=== PATIENT | male | born 1960 | race Hispanic/Latino ===

== ENCOUNTER 2019-01-03 10:33 | Inpatient (IN) | payer BC, OTHER ==
[2019-01-03] MEDS ORDERED: Fentanyl 100 MCG/2 ML VIAL ONE ×2 (10:46→16:12)
[2019-01-03 11:00] LABS: #Basophils 0.1 thou/uL (0.0-0.2); #Eosinphils 0.1 thou/uL (0.0-0.7); #Lymphocytes 1.2 thou/uL (1.20-3.40); #Monocytes 0.9 thou/uL (0.11-0.59); #Neutrophils 13.7 thou/uL (1.40-6.50); %Basophils 0.5 % (0.0-1.0); %Eosinophils 0.5 % (0.0-10.0); %Lymphocytes 7.3 % (21.0-51.0); %Monocytes 5.8 % (0.0-10.0); %Neutrophils 85.9 % (42.0-75.0); Hemoglobin 9.1 g/dL (14.0-18.0); Mean Corpuscular HGB CONC 32.8 g/dL (32.0-36.0); Mean Corpuscular Volume 91.3 fL (78.0-98.0); Mean Platelet Volume 7.6 fL (7.4-10.4); Platelet Count 262 thou/uL (130-400); RBC Distribution Width 11.9 % (11.5-14.5); Red Blood Cell (RBC) Count 3.03 mill/uL (4.70-6.10); White Blood Cell (WBC) Count 15.9 thou/uL (4.8-10.8)
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
[2019-01-03 11:07] LABS: INR-International Normal Ratio 1.2; PTT 27.8 SEC (22.9-36.1); Prothrombin Time 15.2 SEC (12.0-14.7)
[2019-01-03 11:18] LABS: ALT (SGPT) 31 U/L (8-55); AST (SGOT) 29 U/L (5-34); Albumin 2.7 g/dL (3.5-5.0); Alkaline Phosphatase 50 U/L (40-150); Anion Gap 10 mmol/L (10-20); BUN (Urea Nitrogen) 9 mg/dL (8.4-25.7); Bilirubin, Total 0.3 mg/dL (0.2-1.2); Calc. Creatinine Clearance 0 mL/min (70-130); Carbon Dioxide 23 mmol/L (22-29); Chloride 98 mmol/L (98-107); Estimated GFR-MDRD Greater than 90; Globulin 1.7 g/dL (2.4-3.5); Glucose 194 mg/dL (70-105); Potassium 3.6 mmol/L (3.5-5.1); Protein, Total 4.4 g/dL (6.0-8.3); Sodium 127 mmol/L (136-145)
[2019-01-03] MEDS ORDERED: Insulin Regular 300 UNITS/3 ML VIAL ONE (11:27)
[2019-01-03] MEDS ORDERED: Dextrose 5% in Water 1,000 ML IV PRN (12:03)
[2019-01-03] MEDS ORDERED: TETANUS AND DIPHTHERIA TOX/PF 0.5 ML DISP.SYRIN IM ONE ×2 (12:03→21:00)
[2019-01-03] MEDS ORDERED: Dextrose 50% Abboject 50 ML SYRINGE SLOW IVP PRN (12:03)
[2019-01-03] MEDS ORDERED: HumaLOG 300 UNITS/3 ML VIAL SC PRN (12:03)
[2019-01-03] MEDS ORDERED: Ondansetron PF 4 MG/2 ML Vial IVP PRN (12:03)
[2019-01-03] MEDS ORDERED: Promethazine HCl 25 MG/ML VIAL IM PRN (12:03)
[2019-01-03] MEDS ORDERED: Ventilator Sedation Protocol 1 EACH FS ONE (12:18)
[2019-01-03 12:34] LABS: Magnesium 1.4 mg/dL (1.6-2.6); Phosphorus 3.1 mg/dL (2.3-4.7)
[2019-01-03] MEDS ORDERED: fentaNYL Citrate/PF 2,000 MCG in Sodium Chloride 0.9% 60 ML IV SCH (13:08)
[2019-01-03] MEDS ORDERED: Morphine 2 MG/ML SYRINGE SLOW IVP PRN (13:08)
[2019-01-03] MEDS ORDERED: DISCONTINUE PREVIOUS NARCOTIC PAIN MEDICATIONS AND BENZODIAZEPINES FS SCH (13:08)
[2019-01-03] MEDS ORDERED: Fentanyl BOLUS 250 ML IVPB PRN (13:08)
[2019-01-03] MEDS ORDERED: Propofol BOLUS 1,000 MG/100 ML VIAL IV PRN (13:08)
[2019-01-03] MEDS ORDERED: Lorazepam 2 MG/ML VIAL SLOW IVP PRN (13:08)
[2019-01-03 13:09] LABS: Hemoglobin 10.5 g/dL (14.0-18.0); Mean Corpuscular HGB CONC 33.7 g/dL (32.0-36.0); Mean Corpuscular Hemoglobin 30.5 pg (27.0-31.0); Mean Corpuscular Volume 90.5 fL (78.0-98.0); Mean Platelet Volume 6.9 fL (7.4-10.4); Platelet Count 106 thou/uL (130-400); RBC Distribution Width 13.1 % (11.5-14.5); Red Blood Cell (RBC) Count 3.43 mill/uL (4.70-6.10)
[2019-01-03 13:13] LABS: INR-International Normal Ratio 1.2; PTT 39.7 SEC (22.9-36.1); Prothrombin Time 15.5 SEC (12.0-14.7)
[2019-01-03] MEDS ORDERED: Rocuronium Bromide 50 MG/5 ML VIAL ONE (13:26)
[2019-01-03] MEDS ORDERED: Calcium Chloride 1 GM/10 ML Abboject SYRINGE ONE ×2 (13:26→15:03)
[2019-01-03] MEDS ORDERED: Calcium Chloride 13.6 MEQ in Sodium Chloride 0.9% 100 ML IVPB SCH (14:00)
[2019-01-03 14:58] LABS: Hemoglobin 11.6 g/dL (14.0-18.0); Mean Corpuscular HGB CONC 33.1 g/dL (32.0-36.0); Mean Corpuscular Hemoglobin 29.8 pg (27.0-31.0); Mean Corpuscular Volume 90.1 fL (78.0-98.0); Mean Platelet Volume 7.2 fL (7.4-10.4); Platelet Count 108 thou/uL (130-400); White Blood Cell (WBC) Count 3.3 thou/uL (4.8-10.8)
[2019-01-03 14:59] LABS: INR-International Normal Ratio 1.1; Prothrombin Time 14.3 SEC (12.0-14.7)
[2019-01-03 15:00] LABS: PTT 34.4 SEC (22.9-36.1)
[2019-01-03] MEDS ORDERED: Rocuronium Bromide 10 MG/ML (10ML VIAL) ONE (15:03)
[2019-01-03] MEDS ORDERED: Succinylcholine Chloride 20 MG/ML 10 ml SYRINGE FS ONE (15:03)
[2019-01-03] MEDS ORDERED: PROPOFOL 200 MG/20 ML VIAL ONE (15:03)
--- NOTE | 2019-01-03 15:53 | RAD ---
EXAM: XR Abdomen 1 View/KUB DATE: 01/03/2019 12:00 AM INDICATION: Surgical count checked COMPARISON: Prior abdominal radiograph dated 01/03/2019 FINDING: There is a surgical drain within the lower abdomen and superior pelvis. There is a gastric catheter projecting in the region of gastric body. No additional suspicious radiopaque foreign body is noted. Visualized bowel gas pattern is nonspecific. No acute osseous abnormality is evident. IMPRESSION:No retained surgical instrumentation demonstrated other than a surgically placed drain wit hin the lower abdomen and a gastric catheter called within the region of the gastric body.
[2019-01-03 15:57] LABS: Actual Bicarbonate (HCO3a) 26.4 mEq/L (22-28); Base Excess (BEa) 0.8 mEq/L (-2.0 to +3.0); CO2 Tension 45.7 mmHg (35.0-45.0); Calcium, Ionized 1.16 mmol/L (1.12-1.30); Carboxyhemoglobin (COHb) 1.5 gm% (0.0-3.0); O2 Tension (PaO2) 98.1 mmHg (80.0-100.0); Potassium - ABG Lab 3.09 mmol/L (3.70-5.30); pH, Arterial 7.38 (7.35-7.45)
[2019-01-03] MEDS: Propofol 1,000 MG/100 ML VIAL IV PRN ×3 (16:00→22:10)
[2019-01-03 16:01] LABS: ALV-art Gradient 272.575 (0-20); Puncture Site LINE
[2019-01-03 16:09] LABS: #Lymphocytes 0.7 thou/uL (1.20-3.40); #Monocytes 0.4 thou/uL (0.11-0.59); #Neutrophils 2.7 thou/uL (1.40-6.50); %Eosinophils 0.2 % (0.0-10.0); %Lymphocytes 18.1 % (21.0-51.0); %Monocytes 9.4 % (0.0-10.0); %Neutrophils 72.3 % (42.0-75.0); Hemoglobin 12.4 g/dL (14.0-18.0); Mean Corpuscular HGB CONC 33.8 g/dL (32.0-36.0); Mean Corpuscular Hemoglobin 30.2 pg (27.0-31.0); Mean Corpuscular Volume 89.5 fL (78.0-98.0); Mean Platelet Volume 7.4 fL (7.4-10.4); Platelet Count 119 thou/uL (130-400); White Blood Cell (WBC) Count 3.8 thou/uL (4.8-10.8)
[2019-01-03 16:16] LABS: INR-International Normal Ratio 1.2; PTT 34.7 SEC (22.9-36.1)
[2019-01-03] MEDS: Sodium Chloride 0.9% 1,000 ML IV SCH ×2 (16:20→21:04)
[2019-01-03 16:24] LABS: Lactic Acid 2.4 mmol/L (0.5-2.2)
[2019-01-03] MEDS ORDERED: hydrALAZINE 20 MG/ML VIAL SLOW IVP PRN ×2 (16:28→16:38)
[2019-01-03] MEDS ORDERED: hydrALAZINE 20 MG/ML VIAL ONE (16:29)
[2019-01-03] MEDS ORDERED: Magnesium 2 GM/50 ML 2 GM in Premix Bag 1 BAG IVPB SCH (16:45)
[2019-01-03 16:50] LABS: ALT (SGPT) 55 U/L (8-55); AST (SGOT) 52 U/L (5-34); Albumin 3.4 g/dL (3.5-5.0); Alkaline Phosphatase 58 U/L (40-150); Anion Gap 12 mmol/L (10-20); BUN (Urea Nitrogen) 9 mg/dL (8.4-25.7); Calc. Creatinine Clearance 0 mL/min (70-130); Calcium 9.1 mg/dL (7.8-10.44); Carbon Dioxide 23 mmol/L (22-29); Chloride 102 mmol/L (98-107); Estimated GFR-MDRD Greater than 90; Globulin 2.3 g/dL (2.4-3.5); Glucose 65 mg/dL (70-105); Potassium 3.1 mmol/L (3.5-5.1); Protein, Total 5.7 g/dL (6.0-8.3); Sodium 134 mmol/L (136-145)
--- NOTE | 2019-01-03 17:13 | RAD ---
Exam: Chest one view HISTORY:Intubation Comparison: Same date, 1035 hours FINDINGS: Lungs: Bilateral perihilar patchy opacities are present. Left basilar density is also seen Cardiac silhouette:Enlarged cardiac and mediastinal silhouette Pulmonary vessels: Engorged Pleural Spaces: Mild pleural-based densities inferiorly Pneumothorax: No discrete pneumothorax. Interval placement of endotracheal tube with tip at thoracic inlet. Enteric catheter traverses to ran tral abdomen, at midline. Osseous abnormalities: No significant change IMPRESSION: Fluid overload. Interval intubation, as above
[2019-01-03] MEDS ORDERED: Potassium Chloride 40 MEQ in Premix Bag 1 BAG IVPB SCH (17:15)
[2019-01-03] MEDS: Piperacillin/Tazobactam 3.375 GM in Sodium Chloride 0.9% 100 ML IVPB SCH ×2 (17:22→22:19)
[2019-01-03 17:48] VITALS: BMI 33.3
[2019-01-03] MEDS ORDERED: Sodium Chloride 0.9% (PF) 10 ML VIAL FS PRN (18:14)
[2019-01-03] MEDS ORDERED: Pantoprazole 40 MG VIAL IVP SCH (18:15)
[2019-01-03 19:37] LABS: Bilirubin Negative (Negative); Blood, Urine Negative (Negative); Clarity Clear (Clear); Glucose, Urine (Dipstick) Normal (Negative); Leukocyte 250 Leu/uL (Negative); Nitrite Negative (Negative); Protein, Urine (Dipstick) Negative (Neg-Trace); RBC/HPF 0-3 HPF (0-3); Squamous Epithelial None Seen HPF (0-3); Urobilinogen Normal mg/dL (Less than 2)
[2019-01-03 19:44] LABS: Bacteria/HPF None Seen HPF (None Seen)
[2019-01-03] MEDS: Senokot S 8.6-50 MG TAB PO SCH (20:08)
[2019-01-03] MEDS ORDERED: Famotidine 20 MG TAB PO SCH (21:00)
[2019-01-04] MEDS ORDERED: Acetaminophen 1,000 MG in Premix Bag 1 BAG IVPB PRN (00:19)
[2019-01-04] MEDS: Sodium Chloride 0.9% 1,000 ML IV SCH ×3 (02:04→19:54)
[2019-01-04] MEDS: Propofol 1,000 MG/100 ML VIAL IV PRN (02:36)
[2019-01-04 03:24] LABS: INR-International Normal Ratio 1.3; PTT 34.3 SEC (22.9-36.1); Prothrombin Time 15.9 SEC (12.0-14.7)
[2019-01-04 03:37] LABS: Lactic Acid 1.4 mmol/L (0.5-2.2)
[2019-01-04 03:38] LABS: Band 31 % (5-11); Hemoglobin 11.9 g/dL (14.0-18.0); Hypochromia SLIGHT = 6-15 cells (100X) (0-5/hpf); Lymphocytes 14 % (21-51); MDiff Complete? YES; Mean Corpuscular HGB CONC 32.6 g/dL (32.0-36.0); Mean Corpuscular Hemoglobin 29.4 pg (27.0-31.0); Mean Corpuscular Volume 90.2 fL (78.0-98.0); Mean Platelet Volume 7.5 fL (7.4-10.4); Monocytes 5 % (0-10); Neutrophil 50 % (42-75); Platelet Count 138 thou/uL (130-400); Platelet Morphology Comment Appears Adequate; RBC Distribution Width 13.3 % (11.5-14.5); Red Blood Cell (RBC) Count 4.06 mill/uL (4.70-6.10); White Blood Cell (WBC) Count 6.6 thou/uL (4.8-10.8)
[2019-01-04 03:42] LABS: ALT (SGPT) 41 U/L (8-55); AST (SGOT) 38 U/L (5-34); Alkaline Phosphatase 50 U/L (40-150); Anion Gap 11 mmol/L (10-20); BUN (Urea Nitrogen) 10 mg/dL (8.4-25.7); Bilirubin, Total 1.3 mg/dL (0.2-1.2); Calc. Creatinine Clearance 135 mL/min (70-130); Calcium 8.2 mg/dL (7.8-10.44); Carbon Dioxide 26 mmol/L (22-29); Chloride 102 mmol/L (98-107); Estimated GFR-MDRD Greater than 90; Globulin 2.1 g/dL (2.4-3.5); Glucose 103 mg/dL (70-105); Potassium 3.7 mmol/L (3.5-5.1); Protein, Total 5.1 g/dL (6.0-8.3); Sodium 135 mmol/L (136-145)
[2019-01-04] MEDS: Piperacillin/Tazobactam 3.375 GM in Sodium Chloride 0.9% 100 ML IVPB SCH ×4 (04:10→22:02)
[2019-01-04] MEDS ORDERED: Hydrocortisone Sod Succ/PF 100 mg/2 ml Vial IVP SCH (07:15)
[2019-01-04] MEDS ORDERED: diphenhydrAMINE 50 MG/ML VIAL IM/IV SCH (07:15)
[2019-01-04 07:31] LABS: Actual Bicarbonate (HCO3a) 25.9 mEq/L (22-28); Base Excess (BEa) 0.8 mEq/L (-2.0 to +3.0); CO2 Tension 43.4 mmHg (35.0-45.0); Calcium, Ionized 1.03 mmol/L (1.12-1.30); Carboxyhemoglobin (COHb) 1.6 gm% (0.0-3.0); Hemoglobin (Hb) 12.8 g/dL (14.0-18.0); O2 Tension (PaO2) 77.1 mmHg (80.0-100.0); pH, Arterial 7.39 (7.35-7.45)
[2019-01-04 07:33] LABS: Puncture Site LINE
[2019-01-04] MEDS: Pantoprazole 40 MG VIAL IVP SCH (07:56)
[2019-01-04] MEDS: Polyethylene Glycol 3350 17 GM Packet PO SCH (07:56)
[2019-01-04] MEDS: Senokot S 8.6-50 MG TAB PO SCH ×2 (07:56→19:52)
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
[2019-01-04] MEDS ORDERED: diphenhydrAMINE 50 MG/ML VIAL IVP PRN (11:07)
[2019-01-04] MEDS ORDERED: diphenhydrAMINE 25 MG CAP PO PRN (11:07)
[2019-01-04] MEDS ORDERED: Naloxone HCl 0.4 mg/ml Vial IV PRN (11:07)
[2019-01-04] MEDS ORDERED: Communication Order-Pharmacy FS SCH (11:15)
[2019-01-04] MEDS: HYDROmorphone 10 mg/100 ml CADD IVPB PRN (11:38)
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
[2019-01-04] MEDS: Ketorolac Tromethamine 30 MG/ML VIAL IVP SCH ×3 (12:54→23:09)
[2019-01-04] MEDS: Acetaminophen 500 MG TAB PO SCH ×3 (12:56→23:09)
[2019-01-04 12:57] LABS: Phosphorus 4.1 mg/dL (2.3-4.7)
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
[2019-01-04] MEDS: hydrALAZINE 20 MG/ML VIAL SLOW IVP PRN (20:16)
[2019-01-04] MEDS ORDERED: ESZOPICLONE 1 MG PO PRN (21:07)
[2019-01-04] MEDS ORDERED: Labetalol 100 MG TAB PO SCH (21:30)
[2019-01-04] MEDS ORDERED: Valsartan 80 MG TAB PO ONE (21:31)
[2019-01-05] MEDS: Zolpidem Tartrate 5 MG TAB PO PRN (02:40)
[2019-01-05] MEDS ORDERED: Melatonin 3 MG TAB PO PRN (03:04)
[2019-01-05 03:58] LABS: Band 8 % (5-11); Hemoglobin 12.3 g/dL (14.0-18.0); Lymphocytes 5 % (21-51); MDiff Complete? YES; Mean Corpuscular HGB CONC 32.3 g/dL (32.0-36.0); Mean Corpuscular Hemoglobin 29.5 pg (27.0-31.0); Mean Corpuscular Volume 91.3 fL (78.0-98.0); Mean Platelet Volume 7.9 fL (7.4-10.4); Monocytes 3 % (0-10); Neutrophil 84 % (42-75); Platelet Count 142 thou/uL (130-400); Platelet Morphology Comment Appears Adequate; RBC Distribution Width 13.5 % (11.5-14.5); Red Blood Cell (RBC) Count 4.19 mill/uL (4.70-6.10); White Blood Cell (WBC) Count 9.9 thou/uL (4.8-10.8)
[2019-01-05 04:01] LABS: ALT (SGPT) 36 U/L (8-55); AST (SGOT) 31 U/L (5-34); Alkaline Phosphatase 66 U/L (40-150); Anion Gap 11 mmol/L (10-20); BUN (Urea Nitrogen) 7 mg/dL (8.4-25.7); Bilirubin, Total 1.1 mg/dL (0.2-1.2); Calc. Creatinine Clearance 168 mL/min (70-130); Calcium 8.6 mg/dL (7.8-10.44); Carbon Dioxide 26 mmol/L (22-29); Chloride 102 mmol/L (98-107); Estimated GFR-MDRD Greater than 90; Globulin 2.9 g/dL (2.4-3.5); Glucose 105 mg/dL (70-105); Magnesium 1.7 mg/dL (1.6-2.6); Phosphorus 2.4 mg/dL (2.3-4.7); Potassium 3.2 mmol/L (3.5-5.1); Protein, Total 5.9 g/dL (6.0-8.3); Sodium 136 mmol/L (136-145)
[2019-01-05] MEDS: Ketorolac Tromethamine 30 MG/ML VIAL IVP SCH ×4 (05:11→23:35)
[2019-01-05] MEDS: Piperacillin/Tazobactam 3.375 GM in Sodium Chloride 0.9% 100 ML IVPB SCH ×4 (05:11→22:52)
[2019-01-05] MEDS: Acetaminophen 500 MG TAB PO SCH ×4 (05:32→23:36)
[2019-01-05] MEDS: Sodium Chloride 0.9% 1,000 ML IV SCH ×3 (05:36→17:32)
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
[2019-01-05] MEDS ORDERED: Magnesium Sulfate 2 GM, Potassium Phosphate 30 MMOL in Sodium Chloride 0.9% 250 ML 250 ML IVPB SCH (08:30)
[2019-01-05] MEDS: Hydrochlorothiazide 25 MG TAB PO SCH (08:55)
[2019-01-05] MEDS: Senokot S 8.6-50 MG TAB PO SCH ×2 (08:56→21:02)
[2019-01-05] MEDS: Pantoprazole 40 MG VIAL IVP SCH (08:56)
[2019-01-05] MEDS ORDERED: Enoxaparin Sodium 30 MG/0.3 ML SYRINGE SC SCH (09:30)
[2019-01-05] MEDS: Polyethylene Glycol 3350 17 GM Packet PO SCH (09:39)
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
[2019-01-05] MEDS: Labetalol HCl 100 MG/20 ML VIAL SLOW IVP PRN (15:07)
--- NOTE | 2019-01-05 17:07 | EKG ---
Test Reason : Blood Pressure : / mmHG Vent. Rate : 059 BPM Atrial Rate : 059 BPM P-R Int : 144 ms QRS Dur : 082 ms QT Int : 424 ms P-R-T Axes : 051 027 036 degrees QTc Int : 419 ms Sinus bradycardia Possible Inferior infarct , age undetermined Abnormal ECG No previous ECGs available Confirmed by POLLY ALCAZAR ([id number]) on 01/05/2019 5:06:55 PM Referred By: NICOL Confirmed By:POLLY ALCAZAR
--- NOTE | 2019-01-05 19:23 | PDOC.GSPN ---
Surgery Progress Note: Subj - Subjective Narrative: Patient is doing well. He has ambulated with assistance. Pain is tolerable. No flatus but no nausea and NG is not putting out much. Incisional wound VAC is in place. Serosanguineous drainage from the AARTI. H&H are stable and other labs look good. He is awaiting a floor bed. Surgery Progress Note: Obj - Vital signs Vital signs: Vital Signs - Most Recent Temp Pulse Resp BP Pulse Ox 98.7 F 86 16 169/85 H 97 01/05/19 19:00 01/05/19 15:20 01/04/19 07:26 01/05/19 15:20 01/05/19 16:52 Surgery Progress Note: Results - Labs Result Diagrams: 01/05/19 03:19 01/05/19 03:19 Lab results: Laboratory Results - last 24 hr 01/05/19 01/05/19 01/05/19 09:20 12:42 17:25 POC Glucose 88 96 102
[2019-01-05] MEDS ORDERED: metFORMIN 500 MG TAB PO SCH (21:00)
[2019-01-05] MEDS: Enoxaparin Sodium 30 MG/0.3 ML SYRINGE SC SCH (21:02)
[2019-01-05] MEDS: traZODone HCl 50 MG TAB PO SCH (21:02)
[2019-01-05] MEDS ORDERED: PHOS-NAK 1 PKT PACK PO SCH (21:30)
[2019-01-06] MEDS: Zolpidem Tartrate 5 MG TAB PO PRN (03:12)
[2019-01-06] MEDS: Sodium Chloride 0.9% 1,000 ML IV SCH ×2 (03:40→08:09)
[2019-01-06] MEDS: Ketorolac Tromethamine 30 MG/ML VIAL IVP SCH (05:08)
[2019-01-06] MEDS: Piperacillin/Tazobactam 3.375 GM in Sodium Chloride 0.9% 100 ML IVPB SCH ×4 (05:08→23:04)
[2019-01-06] MEDS: Acetaminophen 500 MG TAB PO SCH (05:09)
[2019-01-06 06:21] LABS: Anion Gap 12 mmol/L (10-20); BUN (Urea Nitrogen) 9 mg/dL (8.4-25.7); Calc. Creatinine Clearance 168 mL/min (70-130); Calcium 8.2 mg/dL (7.8-10.44); Carbon Dioxide 23 mmol/L (22-29); Chloride 103 mmol/L (98-107); Estimated GFR-MDRD Greater than 90; Glucose 89 mg/dL (70-105); Magnesium 1.6 mg/dL (1.6-2.6); Phosphorus 2.7 mg/dL (2.3-4.7); Potassium 3.2 mmol/L (3.5-5.1); Sodium 135 mmol/L (136-145)
[2019-01-06] MEDS ORDERED: HumaLOG 300 UNITS/3 ML VIAL SC PRN (07:00)
[2019-01-06] MEDS ORDERED: Magnesium 2 GM/50 ML 2 GM in Premix Bag 1 BAG IVPB SCH (07:00)
[2019-01-06] MEDS ORDERED: Potassium Phosphate 30 MMOL in Sodium Chloride 0.9% 500 ML IVPB SCH (07:00)
[2019-01-06] MEDS ORDERED: Dextrose 5% in Water 1,000 ML IV PRN (07:00)
[2019-01-06] MEDS ORDERED: Dextrose 50% Abboject 50 ML SYRINGE SLOW IVP PRN (07:00)
[2019-01-06] MEDS ORDERED: Potassium Phosphate 30 MMOL in Sodium Chloride 0.9% 250 ML 250 ML IVPB SCH (08:00)
[2019-01-06] MEDS: Hydrochlorothiazide 25 MG TAB PO SCH (08:18)
[2019-01-06] MEDS: Senokot S 8.6-50 MG TAB PO SCH ×2 (08:19→20:36)
[2019-01-06] MEDS: Pantoprazole 40 MG VIAL IVP SCH ×2 (08:20→11:23)
[2019-01-06] MEDS: Enoxaparin Sodium 30 MG/0.3 ML SYRINGE SC SCH ×2 (08:21→20:34)
[2019-01-06] MEDS: HYDROmorphone 10 mg/100 ml CADD IVPB PRN (08:36)
[2019-01-06] MEDS: Polyethylene Glycol 3350 17 GM Packet PO SCH (10:26)
[2019-01-06] MEDS ORDERED: Ibuprofen 800 MG TAB PO SCH (11:00)
[2019-01-06] MEDS ORDERED: Acetaminophen 500 MG TAB PO SCH (12:00)
[2019-01-06] MEDS: HYDROcodone/Acetaminophen 7.5/325 mg Tablet PO SCH ×3 (12:04→23:06)
[2019-01-06] MEDS: HYDROcodone/Acetaminophen 7.5/325 mg Tablet PO PRN ×2 (13:13→18:04)
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
[2019-01-06] MEDS: Ibuprofen 800 MG TAB PO SCH ×2 (15:26→23:06)
[2019-01-06] MEDS: Acetaminophen 325 MG TAB PO SCH ×2 (17:14→23:07)
[2019-01-06] MEDS: traZODone HCl 50 MG TAB PO SCH (21:44)
[2019-01-07] MEDS: hydrALAZINE 20 MG/ML VIAL SLOW IVP PRN ×2 (01:12→05:28)
[2019-01-07] MEDS: Labetalol HCl 100 MG/20 ML VIAL SLOW IVP PRN ×2 (02:00→23:30)
[2019-01-07] MEDS: HYDROcodone/Acetaminophen 7.5/325 mg Tablet PO SCH ×4 (05:07→23:26)
[2019-01-07] MEDS: Acetaminophen 325 MG TAB PO SCH ×4 (05:07→23:26)
[2019-01-07] MEDS: Piperacillin/Tazobactam 3.375 GM in Sodium Chloride 0.9% 100 ML IVPB SCH ×4 (05:08→23:25)
[2019-01-07] MEDS: Ibuprofen 800 MG TAB PO SCH ×3 (06:15→23:26)
[2019-01-07 07:55] LABS: Anion Gap 13 mmol/L (10-20); BUN (Urea Nitrogen) 7 mg/dL (8.4-25.7); Calc. Creatinine Clearance 178 mL/min (70-130); Calcium 8.3 mg/dL (7.8-10.44); Carbon Dioxide 22 mmol/L (22-29); Chloride 102 mmol/L (98-107); Estimated GFR-MDRD Greater than 90; Glucose 107 mg/dL (70-105); Magnesium 1.8 mg/dL (1.6-2.6); Phosphorus 2.9 mg/dL (2.3-4.7); Sodium 134 mmol/L (136-145)
[2019-01-07 08:01] LABS: Potassium 2.8 mmol/L (3.5-5.1)
[2019-01-07] MEDS ORDERED: Magnesium 2 GM/50 ML 2 GM in Premix Bag 1 BAG IVPB SCH (08:15)
[2019-01-07] MEDS ORDERED: Potassium Phosphate 30 MMOL in Sodium Chloride 0.9% 500 ML IVPB SCH (08:15)
[2019-01-07 08:19] LABS: Hemoglobin 12.2 g/dL (14.0-18.0); Mean Corpuscular HGB CONC 33.9 g/dL (32.0-36.0); Mean Corpuscular Hemoglobin 30.4 pg (27.0-31.0); Mean Corpuscular Volume 89.9 fL (78.0-98.0); Mean Platelet Volume 7.9 fL (7.4-10.4); Platelet Count 231 thou/uL (130-400); Red Blood Cell (RBC) Count 4.01 mill/uL (4.70-6.10); White Blood Cell (WBC) Count 7.8 thou/uL (4.8-10.8)
[2019-01-07 08:58] LABS: Band 8 % (5-11); Lymphocytes 13 % (21-51); MDiff Complete? YES; Monocytes 9 % (0-10); Neutrophil 70 % (42-75); RBC Morphology Normal
[2019-01-07] MEDS: Hydrochlorothiazide 25 MG TAB PO SCH (09:07)
[2019-01-07] MEDS: Pantoprazole 40 MG VIAL IVP SCH (09:08)
[2019-01-07] MEDS: Enoxaparin Sodium 30 MG/0.3 ML SYRINGE SC SCH ×2 (09:08→21:35)
[2019-01-07] MEDS: Polyethylene Glycol 3350 17 GM Packet PO SCH (09:17)
[2019-01-07] MEDS: Senokot S 8.6-50 MG TAB PO SCH (09:17)
[2019-01-07] MEDS ORDERED: Potassium Phosphate 30 MMOL in Sodium Chloride 0.9% 250 ML 250 ML IVPB SCH (09:45)
[2019-01-07 13:20] LABS: Actual Bicarbonate (HCO3a) 21.6 mEq/L (22-28); Analyzer IN Cardio OR; Base Excess (BEa) -3.9 mEq/L (-2.0 to +3.0); CO2 Tension 41.3 mmHg (35.0-45.0); Calcium, Ionized 0.81 mmol/L (1.12-1.30); Carboxyhemoglobin (COHb) 0.1 gm% (0.0-3.0); Hemoglobin (Hb) 10.6 g/dL (14.0-18.0); O2 Tension (PaO2) 203.9 mmHg (80.0-100.0); Potassium - ABG Lab 3.56 mmol/L (3.70-5.30); pH, Arterial 7.34 (7.35-7.45)
[2019-01-07 13:20] LABS: Actual Bicarbonate (HCO3a) 19.2 mEq/L (22-28); Analyzer IN Cardio OR; Base Excess (BEa) -6.7 mEq/L (-2.0 to +3.0); Calcium, Ionized 0.69 mmol/L (1.12-1.30); Carboxyhemoglobin (COHb) 0.3 gm% (0.0-3.0); Hemoglobin (Hb) 10.6 g/dL (14.0-18.0); O2 Tension (PaO2) 220.4 mmHg (80.0-100.0); Potassium - ABG Lab 3.93 mmol/L (3.70-5.30)
[2019-01-07 13:21] LABS: Actual Bicarbonate (HCO3a) 20.2 mEq/L (22-28); Analyzer IN Cardio OR; Base Excess (BEa) -4.2 mEq/L (-2.0 to +3.0); CO2 Tension 34.6 mmHg (35.0-45.0); Calcium, Ionized 0.91 mmol/L (1.12-1.30); Carboxyhemoglobin (COHb) 0.2 gm% (0.0-3.0); O2 Tension (PaO2) 147.2 mmHg (80.0-100.0); Potassium - ABG Lab 3.02 mmol/L (3.70-5.30); pH, Arterial 7.38 (7.35-7.45)
[2019-01-07 13:22] LABS: Puncture Site ALINE
[2019-01-07 13:22] LABS: Puncture Site ALINE
[2019-01-07 13:22] LABS: Puncture Site ALINE
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
[2019-01-07] MEDS: traZODone HCl 50 MG TAB PO SCH (22:19)
[2019-01-08] MEDS: HYDROcodone/Acetaminophen 7.5/325 mg Tablet PO SCH (05:05)
[2019-01-08] MEDS: Acetaminophen 325 MG TAB PO SCH ×2 (05:06→11:44)
[2019-01-08] MEDS: Piperacillin/Tazobactam 3.375 GM in Sodium Chloride 0.9% 100 ML IVPB SCH ×2 (06:01→11:44)
[2019-01-08] MEDS: Ibuprofen 800 MG TAB PO SCH ×2 (06:02→14:59)
[2019-01-08 06:51] LABS: Anion Gap 15 mmol/L (10-20); BUN (Urea Nitrogen) 8 mg/dL (8.4-25.7); Calc. Creatinine Clearance 173 mL/min (70-130); Calcium 8.7 mg/dL (7.8-10.44); Carbon Dioxide 21 mmol/L (22-29); Chloride 101 mmol/L (98-107); Estimated GFR-MDRD Greater than 90; Glucose 98 mg/dL (70-105); Magnesium 1.8 mg/dL (1.6-2.6); Phosphorus 3.1 mg/dL (2.3-4.7); Sodium 134 mmol/L (136-145)
[2019-01-08 06:58] LABS: Potassium 2.9 mmol/L (3.5-5.1)
[2019-01-08] MEDS ORDERED: Potassium Phosphate 30 MMOL in Sodium Chloride 0.9% 500 ML IVPB SCH (07:45)
[2019-01-08] MEDS ORDERED: Magnesium 2 GM/50 ML 2 GM in Premix Bag 1 BAG IVPB SCH (07:45)
[2019-01-08] MEDS: Enoxaparin Sodium 30 MG/0.3 ML SYRINGE SC SCH (08:26)
[2019-01-08] MEDS ORDERED: Potassium Phosphate 30 MMOL in Sodium Chloride 0.9% 250 ML 250 ML IVPB SCH (08:30)
[2019-01-08] MEDS ORDERED: Hydrochlorothiazide 25 MG TAB PO SCH (09:00)
[2019-01-08] MEDS ORDERED: Saccharomyces boulardii 250 MG CAP PO SCH (09:00)
[2019-01-08] MEDS: hydrALAZINE 20 MG/ML VIAL SLOW IVP PRN (11:44)
[2019-01-08 14:49] VITALS: BP 121/69; TEMP 99.2
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
== END 2019-01-08 17:49 | disposition home or self-care (01) | DRG 329 ==
LOC: ERS 10:33 → SDC 11:13 → EEVIPCON 11:13 → CCU 11:35 → SURG A 01-05 19:48
PROVIDERS: ADMIT Surgery; ATTEND Surgery
PROC: 0DQ80ZZ Repair Small Intestine, Open Approach (ICD-10-PCS; principal; 2019-01-03)
PROC: 0DQV0ZZ Repair Mesentery, Open Approach (ICD-10-PCS; 2019-01-03)
PROC: 0DQE0ZZ Repair Large Intestine, Open Approach (ICD-10-PCS; 2019-01-03)
PROC: 0W3P0ZZ Control Bleeding in Gastrointestinal Tract, Open Approach (ICD-10-PCS; 2019-01-03)
PROC: 02HV33Z Insertion of Infusion Device into Superior Vena Cava, Percutaneous Approach (ICD-10-PCS; 2019-01-03)
PROC: 30233N1 Transfusion of Nonautologous Red Blood Cells into Peripheral Vein, Percutaneous Approach (ICD-10-PCS; 2019-01-03)
DX: S36.499A Other injury of unspecified part of small intestine, initial encounter (principal); R57.1 Hypovolemic shock; S36.593A Other injury of sigmoid colon, initial encounter; S36.39XA Other injury of stomach, initial encounter; D62 Acute posthemorrhagic anemia; I95.9 Hypotension, unspecified; I10 Essential (primary) hypertension; E11.9 Type 2 diabetes mellitus without complications; E83.39 Other disorders of phosphorus metabolism; E83.42 Hypomagnesemia; E87.6 Hypokalemia; W34.09XA Accidental discharge from other specified firearms, initial encounter; Y93.89 Activity, other specified; Y92.89 Other specified places as the place of occurrence of the external cause
CPT/HCPCS: 36415; 36416; 36430; 36556; 71045; 72170; 74018; 80048; 80053; 81001; 82533; 82805; 83605; 83735; 84100; 85007; 85025; 85027; 85384; 85610; 85730; 86850; 86900; 86901; 87040; 87086; 90714; 93005; 93010; 94002; 94003; C9113; G0390; J0131; J0360; J1200; J1650; J1720; J1815; J1885; J2060; J2543; J2704; J3010; J3475; J3480; J3490; J7050; P9012; P9016; P9035; P9048; P9059

== ENCOUNTER 2019-05-14 20:15 | Inpatient (IN) | payer BC ==
[2019-05-14] MEDS ORDERED: Dextrose 50% Abboject 50 ML SYRINGE SLOW IVP PRN (21:55)
[2019-05-14] MEDS ORDERED: Ondansetron PF 4 MG/2 ML Vial IVP PRN (21:55)
[2019-05-14] MEDS ORDERED: Lorazepam 2 MG/ML VIAL SLOW IVP PRN (21:55)
[2019-05-14] MEDS ORDERED: hydrALAZINE 20 MG/ML VIAL SLOW IVP PRN (21:55)
[2019-05-14] MEDS ORDERED: Insulin Regular 300 UNITS/3 ML VIAL SC PRN (21:55)
[2019-05-14] MEDS ORDERED: Dextrose 5% in Water 1,000 ML IV PRN (21:55)
[2019-05-14 21:56] VITALS: BMI 34.5
[2019-05-14] MEDS: Sodium Chloride 0.9% 1,000 ML IV SCH (22:32)
[2019-05-14] MEDS: Morphine 4 MG/ML VIAL SLOW IVP PRN (22:32)
[2019-05-15] MEDS: Morphine 4 MG/ML VIAL SLOW IVP PRN ×3 (00:48→15:50)
[2019-05-15 05:31] LABS: #Eosinphils 0.1 thou/uL (0.0-0.7); #Lymphocytes 1.3 thou/uL (1.20-3.40); #Monocytes 0.9 thou/uL (0.11-0.59); #Neutrophils 6.6 thou/uL (1.40-6.50); %Basophils 0.4 % (0.0-1.0); %Eosinophils 1.6 % (0.0-10.0); %Lymphocytes 14.4 % (21.0-51.0); %Monocytes 9.7 % (0.0-10.0); %Neutrophils 73.8 % (42.0-75.0); Hemoglobin 11.2 g/dL (14.0-18.0); Mean Corpuscular HGB CONC 33.9 g/dL (32.0-36.0); Mean Corpuscular Hemoglobin 30.3 pg (27.0-31.0); Mean Corpuscular Volume 89.4 fL (78.0-98.0); Mean Platelet Volume 7.6 fL (7.4-10.4); Platelet Count 272 thou/uL (130-400); RBC Distribution Width 12.3 % (11.5-14.5); White Blood Cell (WBC) Count 8.9 thou/uL (4.8-10.8)
[2019-05-15] MEDS: Piperacillin/Tazobactam 3.375 GM in Sodium Chloride 0.9% 100 ML IVPB SCH ×4 (05:35→17:42)
[2019-05-15] MEDS: Ketorolac Tromethamine 30 MG/ML VIAL IVP SCH ×3 (05:35→17:42)
[2019-05-15 05:49] LABS: ALT (SGPT) 28 U/L (8-55); AST (SGOT) 29 U/L (5-34); Albumin 3.5 g/dL (3.5-5.0); Alkaline Phosphatase 83 U/L (40-110); Anion Gap 10 mmol/L (10-20); BUN (Urea Nitrogen) 10 mg/dL (8.4-25.7); Bilirubin, Total 0.9 mg/dL (0.2-1.2); Calc. Creatinine Clearance 134 mL/min (70-130); Calcium 8.1 mg/dL (7.8-10.44); Carbon Dioxide 25 mmol/L (22-29); Chloride 104 mmol/L (98-107); Estimated GFR-MDRD Greater than 90; Globulin 2.9 g/dL (2.4-3.5); Glucose 114 mg/dL (70-105); Potassium 3.9 mmol/L (3.5-5.1); Protein, Total 6.4 g/dL (6.0-8.3); Sodium 135 mmol/L (136-145)
[2019-05-15] MEDS: Morphine 2 MG/ML SYRINGE SLOW IVP PRN (06:14)
[2019-05-15] MEDS: Sodium Chloride 0.9% 1,000 ML IV SCH ×2 (06:18→15:40)
[2019-05-15 08:00] LABS: Hemoglobin A1c 5.8 % (4.0-6.0)
[2019-05-15] MEDS: Famotidine/PF 20 mg/2ml Vial SLOW IVP SCH ×2 (08:33→20:31)
[2019-05-15] MEDS ORDERED: FLU VACC QS2019-20(6MOS UP)/PF 60 MCG/0.5 ML SYRINGE IM ONE (09:00)
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
[2019-05-16] MEDS: Ketorolac Tromethamine 30 MG/ML VIAL IVP SCH ×2 (00:06→05:20)
[2019-05-16] MEDS: Sodium Chloride 0.9% 1,000 ML IV SCH ×3 (00:06→17:32)
[2019-05-16] MEDS: Piperacillin/Tazobactam 3.375 GM in Sodium Chloride 0.9% 100 ML IVPB SCH ×5 (00:07→23:13)
[2019-05-16] MEDS: Morphine 4 MG/ML VIAL SLOW IVP PRN ×3 (07:12→22:05)
[2019-05-16] MEDS: Famotidine/PF 20 mg/2ml Vial SLOW IVP SCH ×2 (09:03→20:39)
[2019-05-16] MEDS ORDERED: Acetaminophen 1,000 MG in Premix Bag 1 BAG IVPB PRN (09:44)
--- NOTE | 2019-05-16 09:57 | PRG ---
DATE OF SERVICE: 05/16/2019 SUBJECTIVE: Mr. Canas feels slightly improved today. OBJECTIVE: He has been afebrile. Vital signs are stable. His abdomen is soft, mildly tender in the left lower quadrant with guarding without rebound. LABORATORY DATA: No new labs today. ASSESSMENT: Microperforation likely from localized sigmoid diverticulitis. PLAN: Continue IV antibiotics. Recheck labs in the morning. Keep on clear liquids for now. Job ID: [id number]
[2019-05-16] MEDS ORDERED: Acetaminophen 650 MG Suppository PR PRN (12:13)
[2019-05-17] MEDS: Piperacillin/Tazobactam 3.375 GM in Sodium Chloride 0.9% 100 ML IVPB SCH ×2 (05:13→12:19)
[2019-05-17] MEDS: Sodium Chloride 0.9% 1,000 ML IV SCH ×2 (05:14→09:43)
[2019-05-17 08:43] LABS: Anion Gap 20 mmol/L (10-20); BUN (Urea Nitrogen) 8 mg/dL (8.4-25.7); Calc. Creatinine Clearance 150 mL/min (70-130); Carbon Dioxide 13 mmol/L (22-29); Chloride 111 mmol/L (98-107); Estimated GFR-MDRD Greater than 90; Glucose 83 mg/dL (70-105); Potassium 5.2 mmol/L (3.5-5.1); Sodium 139 mmol/L (136-145)
--- NOTE | 2019-05-17 08:52 | DIS ---
DATE OF ADMISSION: 05/14/2019 DATE OF DISCHARGE: 05/17/2019 ADMISSION DIAGNOSIS: Sigmoid diverticulitis. DISCHARGE DIAGNOSIS: Sigmoid diverticulitis. PROCEDURES: None. CONDITION ON DISCHARGE: Improved. STAFF: Char/Arnold. HOSPITAL COURSE: The patient was admitted with abdominal pain. He had a couple of areas of microperforation around the sigmoid colon. His pain improved on admission. He was placed on broad-spectrum antibiotics. On the day of discharge, he is doing well. He is tolerating the liquid diet. He is advanced to full liquids. When he goes home, he is going to do a soup type diet for few days and then casseroles for few days before doing solid foods. Prescriptions for Levaquin once a day, Flagyl 3 times a day for 14 days were sent over to his pharmacy. He will follow up with Dr. Pardo in 2 weeks. Job ID: [id number]
[2019-05-17] MEDS: Famotidine/PF 20 mg/2ml Vial SLOW IVP SCH (09:42)
[2019-05-17] MEDS: Morphine 2 MG/ML SYRINGE SLOW IVP PRN (09:57)
[2019-05-17] MEDS ORDERED: HYDROcodone/Acetaminophen 7.5/325 mg Tablet PO PRN (10:28)
[2019-05-17 10:35] LABS: #Eosinphils 0.2 thou/uL (0.0-0.7); #Lymphocytes 1.3 thou/uL (1.20-3.40); #Monocytes 0.6 thou/uL (0.11-0.59); #Neutrophils 6.2 thou/uL (1.40-6.50); %Basophils 0.5 % (0.0-1.0); %Eosinophils 2.1 % (0.0-10.0); %Lymphocytes 15.9 % (21.0-51.0); %Monocytes 7.4 % (0.0-10.0); %Neutrophils 74.2 % (42.0-75.0); Mean Corpuscular HGB CONC 34.8 g/dL (32.0-36.0); Mean Corpuscular Hemoglobin 30.6 pg (27.0-31.0); Mean Platelet Volume 7.7 fL (7.4-10.4); Platelet Count 368 thou/uL (130-400); RBC Distribution Width 12.1 % (11.5-14.5); Red Blood Cell (RBC) Count 4.26 mill/uL (4.70-6.10); White Blood Cell (WBC) Count 8.4 thou/uL (4.8-10.8)
[2019-05-17 11:52] VITALS: BP 134/77; TEMP 98.1
== END 2019-05-17 15:10 | disposition home or self-care (01) | DRG 392 ==
LOC: SURG A 21:26
PROVIDERS: ADMIT Specialist; ATTEND Specialist
DX: K57.20 Diverticulitis of large intestine with perforation and abscess without bleeding (principal); I10 Essential (primary) hypertension; E11.9 Type 2 diabetes mellitus without complications; Z79.84 Long term (current) use of oral hypoglycemic drugs; Z28.21 Immunization not carried out because of patient refusal
CPT/HCPCS: 36415; 36416; 80048; 80053; 83036; 85025; J1885; J2270; J2543; J3490; S0028

== ENCOUNTER 2020-06-16 19:03 | Inpatient (IN) | payer BC ==
[2020-06-17 12:02] VITALS: BMI 33.2
[2020-06-17] MEDS ORDERED: FLU VACC QS2020-21(6MOS UP)/PF 60 MCG/0.5 ML SYRINGE IM ONE (12:30)
[2020-06-17] MEDS ORDERED: Acetaminophen 325 MG TAB PO PRN (13:00)
[2020-06-17] MEDS ORDERED: Ondansetron PF 4 MG/2 ML Vial IVP PRN (13:00)
[2020-06-17] MEDS ORDERED: Guaifenesin DM 100-10/5 ML UDCUP PO PRN (13:00)
[2020-06-17] MEDS ORDERED: Acetaminophen 650 MG Suppository PR PRN (13:00)
[2020-06-17] MEDS ORDERED: Loperamide HCl 2 MG CAP PO PRN (13:00)
[2020-06-17] MEDS ORDERED: Ondansetron ODT 4 MG TAB PO PRN (13:00)
[2020-06-17] MEDS ORDERED: Benzonatate 100 MG CAP PO PRN (13:05)
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
--- NOTE | 2020-06-17 13:39 | RAD ---
Chest AP view INDICATION: Shortness of breath COMPARISON: December 05, 2018 FINDINGS: Lungs: There are new airspace opacities within both lower lobes. Cardiac silhouette: There is mild cardiomegaly Pulmonary vasculature: There is mild pulmonary vascular congestion Pleural spaces: No pleural effusion or pneumothorax is demonstrated. Upper abdomen: No abnormality seen. Osseous structures: No acute osseous abnormality. Additional findings: None. IMPRESSION: Mild cardiomegaly with mild pulmonary vascular congestion. New infrahilar airspace opacities bilaterally are nonspecific but may reflect atelectasis, airspace e julia or pneumonia. Recommend correlation.
[2020-06-17] MEDS: Azithromycin 500 MG in Sodium Chloride 0.9% 250 ML 250 ML IVPB SCH (14:33)
[2020-06-17 15:09] LABS: #Lymphocytes 0.8 thou/uL (1.20-3.40); #Monocytes 0.4 thou/uL (0.11-0.59); #Neutrophils 4.6 thou/uL (1.40-6.50); %Basophils 0.3 % (0.0-1.0); %Eosinophils 0.4 % (0.0-10.0); %Lymphocytes 14.1 % (21.0-51.0); %Monocytes 6.8 % (0.0-10.0); %Neutrophils 78.5 % (42.0-75.0); Hemoglobin 12.4 g/dL (14.0-18.0); Mean Corpuscular HGB CONC 33.6 g/dL (32.0-36.0); Mean Corpuscular Hemoglobin 29.9 pg (27.0-31.0); Mean Corpuscular Volume 88.9 fL (78.0-98.0); Mean Platelet Volume 7.3 fL (7.4-10.4); Platelet Count 451 thou/uL (130-400); RBC Distribution Width 11.8 % (11.5-14.5); Red Blood Cell (RBC) Count 4.16 mill/uL (4.70-6.10); White Blood Cell (WBC) Count 5.9 thou/uL (4.8-10.8)
[2020-06-17] MEDS ORDERED: REMDESIVIR (EUA) 200 MG in Sodium Chloride 0.9% 250 ML 210 ML IV SCH (15:15)
[2020-06-17 15:20] LABS: Anion Gap 17 mmol/L (10-20); BUN (Urea Nitrogen) 19 mg/dL (8.4-25.7); Calc. Creatinine Clearance 123 mL/min (70-130); Calcium 8.1 mg/dL (7.8-10.44); Carbon Dioxide 19 mmol/L (22-29); Chloride 103 mmol/L (98-107); Glucose 171 mg/dL (70-105); Potassium 3.6 mmol/L (3.5-5.1); Sodium 135 mmol/L (136-145)
[2020-06-17 15:34] LABS: ALT (SGPT) 35 U/L (8-55); AST (SGOT) 24 U/L (5-34); Albumin 3.8 g/dL (3.5-5.0); Alkaline Phosphatase 82 U/L (40-110); Bilirubin, Direct 0.1 mg/dL (0.1-0.3); Bilirubin, Total 0.2 mg/dL (0.2-1.2); Protein, Total 7.1 g/dL (6.0-8.3)
[2020-06-17] MEDS: cefTRIAXone\\ROCEPHIN 1 GM in Sodium Chloride 0.9% 100 ML IVPB SCH (15:46)
[2020-06-17] MEDS: traMADol HCl 50 MG TAB PO PRN (17:09)
--- NOTE | 2020-06-17 18:17 | EKG ---
Test Reason : Blood Pressure : / mmHG Vent. Rate : 077 BPM Atrial Rate : 077 BPM P-R Int : 146 ms QRS Dur : 082 ms QT Int : 374 ms P-R-T Axes : 052 015 -13 degrees QTc Int : 423 ms Normal sinus rhythm Nonspecific T wave abnormality Abnormal ECG No previous ECGs available Confirmed by DR. Cathy ARVIZU MD ([id number]) on 06/17/2020 6:17:21 PM Referred By: SHANNON SEN Confirmed By:DR. Cathy ARVIZU MD
[2020-06-17] MEDS: Ibuprofen 800 MG TAB PO PRN (18:38)
[2020-06-17] MEDS: Acetaminophen 325 MG TAB PO SCH ×2 (18:39→21:41)
[2020-06-18] MEDS: Ibuprofen 800 MG TAB PO PRN (02:03)
[2020-06-18] MEDS: Acetaminophen 325 MG TAB PO SCH ×6 (02:03→22:32)
[2020-06-18 06:01] LABS: ALT (SGPT) 39 U/L (8-55); AST (SGOT) 26 U/L (5-34); Albumin 3.7 g/dL (3.5-5.0); Alkaline Phosphatase 73 U/L (40-110); Bilirubin, Direct 0.1 mg/dL (0.1-0.3); Bilirubin, Total 0.3 mg/dL (0.2-1.2); Protein, Total 7.3 g/dL (6.0-8.3)
[2020-06-18] MEDS ORDERED: Dextrose 5% in Water 1,000 ML IV PRN (07:21)
[2020-06-18] MEDS ORDERED: Dextrose 50% Abboject 50 ML SYRINGE SLOW IVP PRN (07:21)
[2020-06-18] MEDS: Dexamethasone 4 MG TAB PO SCH (08:24)
[2020-06-18] MEDS: Amlodipine 10 MG TAB PO SCH (08:26)
[2020-06-18] MEDS: Hydrochlorothiazide 25 MG TAB PO SCH (08:27)
[2020-06-18] MEDS: Aspirin Chewable 81 MG TAB PO SCH (08:27)
[2020-06-18] MEDS: Losartan 25 MG TAB PO SCH (08:27)
[2020-06-18 08:30] LABS: #Lymphocytes 1.5 thou/uL (1.20-3.40); #Monocytes 0.5 thou/uL (0.11-0.59); #Neutrophils 3.4 thou/uL (1.40-6.50); %Basophils 0.6 % (0.0-1.0); %Eosinophils 0.5 % (0.0-10.0); %Lymphocytes 26.8 % (21.0-51.0); %Monocytes 9.9 % (0.0-10.0); %Neutrophils 62.2 % (42.0-75.0); Hemoglobin 12.2 g/dL (14.0-18.0); Mean Corpuscular HGB CONC 34.3 g/dL (32.0-36.0); Mean Corpuscular Hemoglobin 30.9 pg (27.0-31.0); Mean Corpuscular Volume 89.9 fL (78.0-98.0); Mean Platelet Volume 7.4 fL (7.4-10.4); Platelet Count 462 thou/uL (130-400); RBC Distribution Width 11.7 % (11.5-14.5); Red Blood Cell (RBC) Count 3.95 mill/uL (4.70-6.10); White Blood Cell (WBC) Count 5.4 thou/uL (4.8-10.8)
[2020-06-18 08:47] LABS: Anion Gap 15 mmol/L (10-20); BUN (Urea Nitrogen) 22 mg/dL (8.4-25.7); Calc. Creatinine Clearance 132 mL/min (70-130); Calcium 8.2 mg/dL (7.8-10.44); Carbon Dioxide 23 mmol/L (22-29); Chloride 107 mmol/L (98-107); Glucose 95 mg/dL (70-105); Potassium 3.9 mmol/L (3.5-5.1); Sodium 141 mmol/L (136-145)
[2020-06-18] MEDS ORDERED: [UNRECOGNIZED DRUG - OTHER] PO SCH (09:00)
[2020-06-18] MEDS ORDERED: OLMESARTAN PO SCH (09:00)
[2020-06-18] MEDS ORDERED: Enoxaparin Sodium 40 MG/0.4 ML SYRINGE SC SCH (09:00)
[2020-06-18] MEDS ORDERED: AMLODIPIN PO SCH (09:00)
[2020-06-18] MEDS ORDERED: HCTHIAZID PO SCH (09:00)
--- NOTE | 2020-06-18 09:58 | PDOC.HOSPP ---
- Subjective Encounter Date: 06/18/20 Encounter Time: 09:56 Subjective: No overnight events. Patient reports his breathing feels stable. Is doing well on 2L NC. Continues with mild diarrhea. Endorses mild back pain from coughing. Chart and medications reviewed. - Objective Vital Signs & Weight: Vital Signs (12 hours) Temp Pulse Resp BP Pulse Ox 06/18/20 08:27 97.6 F 69 21 H 141/75 H 93 L 06/18/20 03:13 97.9 F 69 18 139/72 96 06/17/20 23:55 20 95 Weight Weight 212 lb 4.8 oz I&O: 06/17/20 06/18/20 06/19/20 06:59 06:59 06:59 Intake Total 1610 Balance 1610 Result Diagrams: 06/18/20 08:06 06/18/20 08:06 Hospitalist ROS - Review of Systems Constitutional: reports: fever, chills, sweats, weakness, malaise Eyes: denies: vision change Respiratory: reports: cough, shortness of breath Cardiovascular: denies: chest pain, palpitations, light headedness Gastrointestinal: reports: diarrhea. denies: nausea, vomiting, abdominal pain Genitourinary: denies: dysuria Musculoskeletal: reports: back pain Skin: denies: rash, lesions Neurological: denies: weakness, numbness - Medication Medications: Active Medications Generic Name Dose Route Start Last Admin Trade Name Freq PRN Reason Stop Dose Admin Acetaminophen 650 mg 06/17/20 18:30 06/18/20 06:12 Acetaminophen 325 Mg Tab PO 650 mg Q4H IVAN Administration Amlodipine Besylate 10 mg 06/18/20 09:00 06/18/20 08:26 Amlodipine 10 Mg Tab PO 10 mg DAILY IVAN Administration Aspirin 81 mg 06/18/20 09:00 06/18/20 08:27 Aspirin Chewable 81 Mg Tab PO 81 mg DAILY IVAN Administration Dexamethasone 6 mg 06/18/20 08:00 06/18/20 08:24 Dexamethasone 4 Mg Tab PO 6 mg QAM-WM IVAN Administration Enoxaparin Sodium 40 mg 06/18/20 09:00 06/18/20 08:27 Enoxaparin Sodium 40 Mg/0.4 Ml Syringe SC 40 mg 0900 IVAN Administration Hydrochlorothiazide 25 mg 06/18/20 09:00 06/18/20 08:27 Hydrochlorothiazide 25 Mg Tab PO 25 mg DAILY IVAN Administration Ceftriaxone Sodium 1 gm/ 100 mls @ 200 mls/hr 06/17/20 15:00 06/17/20 15:46 Sodium Chloride IVPB 100 mls Q24HR IVAN Administration Azithromycin 500 mg/ Sodium 250 mls @ 250 mls/hr 06/17/20 14:00 06/17/20 14:33 Chloride IVPB 250 mls Q24HR IVAN Administration Ibuprofen 800 mg 06/17/20 18:13 06/18/20 02:03 Ibuprofen 800 Mg Tab PO 800 mg Q6H PRN Administration Pain Losartan Potassium 100 mg 06/18/20 09:00 06/18/20 08:27 Losartan 25 Mg Tab PO 100 mg DAILY IVAN Administration Tramadol HCl 50 mg 06/17/20 16:34 06/17/20 17:09 Tramadol Hcl 50 Mg Tab PO 50 mg Q6H PRN Administration Moderate to Severe Pain (6-10) - Exam General Appearance: NAD, awake alert Eye: PERRL, anicteric sclera ENT: normocephalic atraumatic, no oropharyngeal lesions, moist mucosa Neck: supple, symmetric, no JVD, no thyromegaly, no lymphadenopathy, no carotid bruit Heart: RRR, no murmur, no gallops, no rubs, normal peripheral pulses Respiratory: CTAB, no wheezes, no rales, no ronchi, normal chest expansion, no tachypnea, normal percussion Gastrointestinal: soft, non-tender, non-distended, normal bowel sounds, no palpable masses, no hepatomegaly, no splenomegaly, no bruit Extremities: no cyanosis, no clubbing, no edema Skin: normal turgor, no lesions, no rashes Neurological: normal sensation to touch, no weakness, no focal deficits Musculoskeletal: normal tone, normal strength, no muscle wasting Psychiatric: normal affect, normal behavior, A&O x 3 Hosp A/P - Plan 52-year-old male past medical history of hypertension, hyperlipidemia, type 2 diabetes mellitus, diverticulitis transfer [facility] for COVID-19 pneumonia with hypoxia, now stable on 2 L nasal cannula. COVID-19 pneumonia Patient Covid positive and symptoms began approximately 4 days ago with fevers, chills, myalgias. Patient has had worsening fevers and shortness of breath and when he presented to outside ER had desaturated to the high 80s, requiring 2 L nasal cannula. Continues on 2L NC. Will continue dexamethasone, remdesivir. Plan Continue dexamethasone, remdesivir Continue ceftriaxone, azithromycin Inflammatory markers mildly elevated Tylenol, Robitussin, Tessalon pearls PRN Acute hypoxic respiratory failure Patient with acute hypoxic respiratory failure secondary to COVID-19 pneumonia. Patient has new oxygen requirement now requiring 2 L of oxygen nasal cannula to maintain O2 saturations. We will closely monitor respiratory status and treat as above. Plan Supplemental oxygen Treatment as above Closely monitor respiratory status Elevation in troponin Troponins very slightly elevated at outside hospital to 0.09, 0.01, 0.02. Patient without chest pain. Likely elevated inflammatory markers in setting of COVID-19 pneumonia. Patient has no cardiac history. EKG showed nonspecific T wave inversions but no ST segment changes. We will continue to monitor patient on telemetry and trend troponins. Patient did receive aspirin at outside facility. Plan Trend troponin Repeat EKG Telemetry monitoring Back pain Pt reports chronic history of mild back pain. Reports pulled muscle after coughing spell. Will continue tylenol, ibuprofen, heat pad as needed. Plan -Tylenol, Iburprofen -Heating pad PRN Hypertension History of hypertension on home olmesartan. Hyperlipidemia We will continue home statin Type 2 diabetes mellitus On Metformin. Hold oral agents and place on insulin sliding scale. DVT prophylaxisLovenox Full code
--- NOTE | 2020-06-18 12:50 | PDOC.BPN ---
- Brief Progress Note Encounter Date: 06/18/20 Encounter Time: 12:49 Chart reviewed and care discussed with EZ Nguyen - 60 y/o male admitted with acute resp failure secondary to COVID pneumonia. Oxygen requirement stable. Pt on steroids, remdesivir, antibiotics. Blood sugars controlled. I agree with plan of care as outlined in progress note by EZ Nguyen today.
[2020-06-18] MEDS: Azithromycin 500 MG in Sodium Chloride 0.9% 250 ML 250 ML IVPB SCH (14:05)
[2020-06-18] MEDS: cefTRIAXone\\ROCEPHIN 1 GM in Sodium Chloride 0.9% 100 ML IVPB SCH (14:56)
[2020-06-18] MEDS: REMDESIVIR (EUA) 100 MG in Sodium Chloride 0.9% 250 ML 230 ML IV SCH (16:17)
[2020-06-18] MEDS: HumaLOG 300 UNITS/3 ML VIAL SC PRN (16:18)
[2020-06-18] MEDS: traMADol HCl 50 MG TAB PO PRN (17:46)
[2020-06-19] MEDS: Acetaminophen 325 MG TAB PO SCH ×6 (02:27→22:41)
[2020-06-19 05:21] LABS: #Basophils 0.1 thou/uL (0.0-0.2); #Lymphocytes 1.3 thou/uL (1.20-3.40); #Monocytes 0.5 thou/uL (0.11-0.59); #Neutrophils 5.3 thou/uL (1.40-6.50); %Eosinophils 0.2 % (0.0-10.0); %Lymphocytes 17.8 % (21.0-51.0); %Monocytes 7.4 % (0.0-10.0); %Neutrophils 73.6 % (42.0-75.0); Mean Corpuscular HGB CONC 33.1 g/dL (32.0-36.0); Mean Corpuscular Hemoglobin 29.5 pg (27.0-31.0); Mean Corpuscular Volume 89.1 fL (78.0-98.0); Mean Platelet Volume 7.4 fL (7.4-10.4); Platelet Count 510 thou/uL (130-400); RBC Distribution Width 11.7 % (11.5-14.5); Red Blood Cell (RBC) Count 4.08 mill/uL (4.70-6.10); White Blood Cell (WBC) Count 7.2 thou/uL (4.8-10.8)
[2020-06-19 05:41] LABS: ALT (SGPT) 37 U/L (8-55); AST (SGOT) 21 U/L (5-34); Albumin 3.7 g/dL (3.5-5.0); Alkaline Phosphatase 71 U/L (40-110); Anion Gap 15 mmol/L (10-20); BUN (Urea Nitrogen) 20 mg/dL (8.4-25.7); Bilirubin, Direct 0.1 mg/dL (0.1-0.3); Bilirubin, Total 0.3 mg/dL (0.2-1.2); Calc. Creatinine Clearance 148 mL/min (70-130); Carbon Dioxide 22 mmol/L (22-29); Chloride 104 mmol/L (98-107); Glucose 121 mg/dL (70-105); Potassium 3.9 mmol/L (3.5-5.1); Protein, Total 7.1 g/dL (6.0-8.3); Sodium 137 mmol/L (136-145)
[2020-06-19] MEDS: Dexamethasone 4 MG TAB PO SCH (09:20)
[2020-06-19] MEDS: Amlodipine 10 MG TAB PO SCH (09:21)
[2020-06-19] MEDS: Aspirin Chewable 81 MG TAB PO SCH (09:22)
[2020-06-19] MEDS: Ascorbic Acid 500 mg Chewable Tablet PO SCH (09:22)
[2020-06-19] MEDS: Enoxaparin Sodium 40 MG/0.4 ML SYRINGE SC SCH ×2 (09:22→20:51)
[2020-06-19] MEDS: Hydrochlorothiazide 25 MG TAB PO SCH (09:23)
[2020-06-19] MEDS: Zinc Sulfate 220 MG CAP PO SCH (09:23)
[2020-06-19] MEDS: Losartan 25 MG TAB PO SCH (09:23)
--- NOTE | 2020-06-19 14:18 | PDOC.HOSPP ---
- Subjective Encounter Date: 06/19/20 Encounter Time: 07:30 Subjective: Patient seen for follow-up regarding acute hypoxic respiratory failure. He reports feeling better. - Objective Vital Signs & Weight: Vital Signs (12 hours) Temp Pulse Resp BP Pulse Ox 06/19/20 09:22 96 06/19/20 02:35 98.1 F 67 20 144/64 H 96 Weight Admit Weight 212 lb 4.8 oz Weight 212 lb 4.8 oz I&O: 06/18/20 06/19/20 06/20/20 06:59 06:59 06:59 Intake Total 1610 300 Balance 1610 300 Result Diagrams: 06/19/20 04:40 06/19/20 04:41 Additional Labs: Accuchecks 06/19/20 06/18/20 06/18/20 10:33 21:19 16:08 POC Glucose 144 H 160 H 168 H I reviewed patient's labs and MAR EKG Reviewed by me: Yes (Normal sinus rhythm on telemetry) Hospitalist ROS - Review of Systems Respiratory: reports: cough, dry. denies: shortness of breath, hemoptysis, SOB with excertion, pleuritic pain, sputum, wheezing Cardiovascular: denies: chest pain, palpitations, orthopnea, paroxysmal noc. dyspnea, edema, light headedness - Medication Medications: Active Medications Generic Name Dose Route Start Last Admin Trade Name Freq PRN Reason Stop Dose Admin Acetaminophen 650 mg 06/17/20 18:30 06/19/20 11:02 Acetaminophen 325 Mg Tab PO 650 mg Q4H IVAN Administration Amlodipine Besylate 10 mg 06/18/20 09:00 06/19/20 09:21 Amlodipine 10 Mg Tab PO 10 mg DAILY IVAN Administration Ascorbic Acid 1,000 mg 06/19/20 09:00 06/19/20 09:22 Ascorbic Acid 500 Mg Chewable Tablet PO 1,000 mg DAILY IVAN Administration Aspirin 81 mg 06/18/20 09:00 06/19/20 09:22 Aspirin Chewable 81 Mg Tab PO 81 mg DAILY IVAN Administration Dexamethasone 6 mg 06/18/20 08:00 06/19/20 09:20 Dexamethasone 4 Mg Tab PO 6 mg QAM-WM IVAN Administration Enoxaparin Sodium 40 mg 06/19/20 09:00 06/19/20 09:22 Enoxaparin Sodium 40 Mg/0.4 Ml Syringe SC 40 mg 0900,2100 IVAN Administration Hydrochlorothiazide 25 mg 06/18/20 09:00 06/19/20 09:23 Hydrochlorothiazide 25 Mg Tab PO 25 mg DAILY IVAN Administration Ceftriaxone Sodium 1 gm/ 100 mls @ 200 mls/hr 06/17/20 15:00 06/18/20 14:56 Sodium Chloride IVPB 100 mls Q24HR IVAN Administration Azithromycin 500 mg/ Sodium 250 mls @ 250 mls/hr 06/17/20 14:00 06/18/20 14:05 Chloride IVPB 250 mls Q24HR IVAN Administration Remdesivir 100 mg/ Sodium 250 mls @ 250 mls/hr 06/18/20 16:00 06/18/20 16:17 Chloride IV 06/21/20 16:59 250 mls 1600 IVAN Administration Insulin Human Lispro 0 units 06/18/20 07:21 06/18/20 16:18 Humalog 300 Units/3 Ml Vial SC 2 units .MILD SLIDING SCALE PRN Administration Mild Correctional Scale Losartan Potassium 100 mg 06/18/20 09:00 06/19/20 09:23 Losartan 25 Mg Tab PO 100 mg DAILY IVAN Administration Tramadol HCl 50 mg 06/17/20 16:34 06/18/20 17:46 Tramadol Hcl 50 Mg Tab PO 50 mg Q6H PRN Administration Moderate to Severe Pain (6-10) Zinc Sulfate 220 mg 06/19/20 09:00 06/19/20 09:23 Zinc Sulfate 220 Mg Cap PO 220 mg DAILY IVAN Administration - Exam General Appearance: awake alert Eye: anicteric sclera ENT: moist mucosa Neck: supple Heart: RRR Respiratory: CTAB Gastrointestinal: soft, non-tender Skin: no rashes Psychiatric: normal affect, normal behavior Hosp A/P - Plan -Assessment/plan Acute hypoxic respiratory failure Secondary to acute hypoxic respiratory failure. Patient continues to be on 2 L/min of oxygen. COVID-19 pneumonia Continue dexamethasone, remdesivir Continue ceftriaxone, azithromycin Start vitamin C and zinc. -Continue DVT prophylaxis. Elevation in troponin Secondary to non-ST elevation myocardial infarction type II from Covid infection. Back pain Continue tylenol, ibuprofen, heat pad as needed. Hypertension Controlled and stable. Hyperlipidemia Continue statin. Type 2 diabetes mellitus Continue Accu-Cheks and insulin sliding scale.
[2020-06-19] MEDS: cefTRIAXone\\ROCEPHIN 1 GM in Sodium Chloride 0.9% 100 ML IVPB SCH (14:19)
[2020-06-19] MEDS: Azithromycin 500 MG in Sodium Chloride 0.9% 250 ML 250 ML IVPB SCH (15:01)
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
[2020-06-19] MEDS: HumaLOG 300 UNITS/3 ML VIAL SC PRN (16:51)
[2020-06-19] MEDS: REMDESIVIR (EUA) 100 MG in Sodium Chloride 0.9% 250 ML 230 ML IV SCH (18:37)
[2020-06-19] MEDS ORDERED: Melatonin 3 MG TAB PO PRN (22:34)
[2020-06-20] MEDS: Acetaminophen 325 MG TAB PO SCH ×6 (02:30→22:12)
[2020-06-20 05:45] LABS: #Monocytes 0.7 thou/uL (0.11-0.59); %Basophils 0.5 % (0.0-1.0); %Eosinophils 0.2 % (0.0-10.0); %Monocytes 7.6 % (0.0-10.0); %Neutrophils 68.6 % (42.0-75.0); Hemoglobin 12.5 g/dL (14.0-18.0); Mean Corpuscular HGB CONC 34.6 g/dL (32.0-36.0); Mean Corpuscular Hemoglobin 30.7 pg (27.0-31.0); Mean Corpuscular Volume 88.9 fL (78.0-98.0); Mean Platelet Volume 7.3 fL (7.4-10.4); Platelet Count 566 thou/uL (130-400); RBC Distribution Width 11.5 % (11.5-14.5); Red Blood Cell (RBC) Count 4.09 mill/uL (4.70-6.10); White Blood Cell (WBC) Count 8.8 thou/uL (4.8-10.8)
[2020-06-20 06:12] LABS: ALT (SGPT) 55 U/L (8-55); AST (SGOT) 26 U/L (5-34); Albumin 3.7 g/dL (3.5-5.0); Alkaline Phosphatase 70 U/L (40-110); Anion Gap 15 mmol/L (10-20); BUN (Urea Nitrogen) 18 mg/dL (8.4-25.7); Bilirubin, Direct 0.1 mg/dL (0.1-0.3); Bilirubin, Total 0.3 mg/dL (0.2-1.2); Calc. Creatinine Clearance 146 mL/min (70-130); Calcium 8.2 mg/dL (7.8-10.44); Carbon Dioxide 19 mmol/L (22-29); Chloride 107 mmol/L (98-107); Glucose 111 mg/dL (70-105); Potassium 4.2 mmol/L (3.5-5.1); Protein, Total 7.2 g/dL (6.0-8.3); Sodium 137 mmol/L (136-145)
[2020-06-20] MEDS: Dexamethasone 4 MG TAB PO SCH (08:13)
[2020-06-20] MEDS: Ascorbic Acid 500 mg Chewable Tablet PO SCH (08:14)
[2020-06-20] MEDS: Amlodipine 10 MG TAB PO SCH (08:14)
[2020-06-20] MEDS: Hydrochlorothiazide 25 MG TAB PO SCH (08:15)
[2020-06-20] MEDS: Enoxaparin Sodium 40 MG/0.4 ML SYRINGE SC SCH ×2 (08:15→21:07)
[2020-06-20] MEDS: Aspirin Chewable 81 MG TAB PO SCH (08:15)
[2020-06-20] MEDS: Zinc Sulfate 220 MG CAP PO SCH (08:16)
[2020-06-20] MEDS: Losartan 25 MG TAB PO SCH (08:16)
[2020-06-20] MEDS: HumaLOG 300 UNITS/3 ML VIAL SC PRN ×2 (10:45→17:25)
[2020-06-20] MEDS: REMDESIVIR (EUA) 100 MG in Sodium Chloride 0.9% 250 ML 230 ML IV SCH (15:32)
--- NOTE | 2020-06-20 17:04 | PDOC.HOSPP ---
- Subjective Encounter Date: 06/20/20 Encounter Time: 08:00 Subjective: Patient seen for follow-up regarding respiratory failure. Reports feeling better, is currently on room air. - Objective Vital Signs & Weight: Vital Signs (12 hours) Temp Pulse Resp BP BP Pulse Ox 06/20/20 15:47 98.1 F 70 19 131/69 96 06/20/20 11:11 98.4 F 75 18 133/67 96 06/20/20 08:15 95 Weight Admit Weight 212 lb 4.8 oz Weight 212 lb 4.8 oz I&O: 06/19/20 06/20/20 06/21/20 06:59 06:59 06:59 Intake Total 300 1610 Balance 300 1610 Result Diagrams: 06/20/20 05:17 06/20/20 05:17 Additional Labs: Accuchecks 06/20/20 06/20/20 06/19/20 16:32 10:35 19:46 POC Glucose 171 H 169 H 211 H I reviewed patient's labs and MAR EKG Reviewed by me: Yes (Normal sinus rhythm on telemetry) Hospitalist ROS - Review of Systems Cardiovascular: denies: chest pain, palpitations, orthopnea, paroxysmal noc. dyspnea, edema, light headedness Gastrointestinal: denies: nausea, vomiting, abdominal pain, diarrhea, constipa tion, melena, hematochezia - Medication Medications: Active Medications Generic Name Dose Route Start Last Admin Trade Name Freq PRN Reason Stop Dose Admin Acetaminophen 650 mg 06/17/20 18:30 06/20/20 14:43 Acetaminophen 325 Mg Tab PO 650 mg Q4H IVAN Administration Amlodipine Besylate 10 mg 06/18/20 09:00 06/20/20 08:14 Amlodipine 10 Mg Tab PO 10 mg DAILY IVAN Administration Ascorbic Acid 1,000 mg 06/19/20 09:00 06/20/20 08:14 Ascorbic Acid 500 Mg Chewable Tablet PO 1,000 mg DAILY IVAN Administration Aspirin 81 mg 06/18/20 09:00 06/20/20 08:15 Aspirin Chewable 81 Mg Tab PO 81 mg DAILY IVAN Administration Dexamethasone 6 mg 06/18/20 08:00 06/20/20 08:13 Dexamethasone 4 Mg Tab PO 6 mg QA- IVAN Administration Enoxaparin Sodium 40 mg 06/19/20 09:00 06/20/20 08:15 Enoxaparin Sodium 40 Mg/0.4 Ml Syringe SC 40 mg 0900,2100 IVAN Administration Hydrochlorothiazide 25 mg 06/18/20 09:00 06/20/20 08:15 Hydrochlorothiazide 25 Mg Tab PO 25 mg DAILY IVAN Administration Remdesivir 100 mg/ Sodium 250 mls @ 250 mls/hr 06/18/20 16:00 06/20/20 15:32 Chloride IV 06/21/20 16:59 250 mls 1600 IVAN Administration Insulin Human Lispro 0 units 06/18/20 07:21 06/20/20 10:45 Humalog 300 Units/3 Ml Vial SC 2 units .MILD SLIDING SCALE PRN Administration Mild Correctional Scale Losartan Potassium 100 mg 06/18/20 09:00 06/20/20 08:16 Losartan 25 Mg Tab PO 100 mg DAILY IVAN Administration Melatonin 3 mg 06/19/20 22:34 06/19/20 23:14 Melatonin 3 Mg Tab PO 3 mg HS PRN Administration Insomnia Tramadol HCl 50 mg 06/17/20 16:34 06/18/20 17:46 Tramadol Hcl 50 Mg Tab PO 50 mg Q6H PRN Administration Moderate to Severe Pain (6-10) Zinc Sulfate 220 mg 06/19/20 09:00 06/20/20 08:16 Zinc Sulfate 220 Mg Cap PO 220 mg DAILY IVAN Administration - Exam General Appearance: awake alert Eye: anicteric sclera ENT: moist mucosa Neck: supple Heart: RRR Respiratory: CTAB Gastrointestinal: soft, non-tender Skin: no rashes Psychiatric: normal affect, normal behavior Hosp A/P - Plan -Assessment/plan Acute hypoxic respiratory failure Secondary to COVID-19 pneumonia, patient is now oxygenating well on room air. COVID-19 pneumonia Continue dexamethasone, remdesivir ceftriaxone and azithromycin been discontinued -Continue vitamin C and zinc. -Continue DVT prophylaxis. Elevation in troponin Secondary to non-ST elevation myocardial infarction type II from Covid infection. Patient denies any chest pain. Hypertension Controlled and stable. Hyperlipidemia Continue statin. Type 2 diabetes mellitus Continue Accu-Cheks and insulin sliding scale.
[2020-06-21] MEDS: Acetaminophen 325 MG TAB PO SCH ×4 (03:44→15:34)
[2020-06-21 05:36] LABS: #Eosinphils 0.1 thou/uL (0.0-0.7); #Lymphocytes 2.4 thou/uL (1.20-3.40); #Monocytes 0.8 thou/uL (0.11-0.59); #Neutrophils 5.9 thou/uL (1.40-6.50); %Basophils 0.4 % (0.0-1.0); %Eosinophils 0.7 % (0.0-10.0); %Lymphocytes 25.7 % (21.0-51.0); %Monocytes 9.1 % (0.0-10.0); %Neutrophils 64.1 % (42.0-75.0); Hemoglobin 12.4 g/dL (14.0-18.0); Mean Corpuscular HGB CONC 33.8 g/dL (32.0-36.0); Mean Corpuscular Volume 88.7 fL (78.0-98.0); Mean Platelet Volume 7.4 fL (7.4-10.4); Platelet Count 558 thou/uL (130-400); RBC Distribution Width 11.5 % (11.5-14.5); Red Blood Cell (RBC) Count 4.13 mill/uL (4.70-6.10); White Blood Cell (WBC) Count 9.2 thou/uL (4.8-10.8)
[2020-06-21 06:01] LABS: ALT (SGPT) 63 U/L (8-55); AST (SGOT) 25 U/L (5-34); Albumin 3.6 g/dL (3.5-5.0); Alkaline Phosphatase 64 U/L (40-110); Anion Gap 15 mmol/L (10-20); BUN (Urea Nitrogen) 23 mg/dL (8.4-25.7); Bilirubin, Direct 0.1 mg/dL (0.1-0.3); Bilirubin, Total 0.3 mg/dL (0.2-1.2); Calc. Creatinine Clearance 142 mL/min (70-130); Calcium 8.2 mg/dL (7.8-10.44); Carbon Dioxide 21 mmol/L (22-29); Chloride 106 mmol/L (98-107); Glucose 114 mg/dL (70-105); Potassium 3.9 mmol/L (3.5-5.1); Protein, Total 6.9 g/dL (6.0-8.3); Sodium 138 mmol/L (136-145)
[2020-06-21] MEDS: Aspirin Chewable 81 MG TAB PO SCH (08:41)
[2020-06-21] MEDS: Enoxaparin Sodium 40 MG/0.4 ML SYRINGE SC SCH (08:41)
[2020-06-21] MEDS: Ascorbic Acid 500 mg Chewable Tablet PO SCH (08:41)
[2020-06-21] MEDS: Losartan 25 MG TAB PO SCH (08:42)
[2020-06-21] MEDS: Hydrochlorothiazide 25 MG TAB PO SCH (08:42)
[2020-06-21] MEDS: Dexamethasone 4 MG TAB PO SCH (08:42)
[2020-06-21] MEDS: Amlodipine 10 MG TAB PO SCH (08:44)
[2020-06-21] MEDS: Zinc Sulfate 220 MG CAP PO SCH (08:46)
--- NOTE | 2020-06-21 12:24 | PDOC.DS.DS ---
Provider - Provider Date of Admission: 06/17/20 13:00 Date of Discharge: 06/21/20 Admitting Provider: Alexandrea Chong MD Consultations: Infectious Disease (Dr. Simon) Primary Care Physician: Michael Devine MD Course - Hospital Course Hospital Course: Discharge diagnosis: 1. Acute hypoxic respiratory failure 2. COVID-19 pneumonia 3. Hyponatremia Hospital course: Patient is a pleasant 60-year-old gentleman was admitted to the hospital on June 17, 2020 for acute hypoxic respiratory failure secondary to COVID-19 pneumonia. He was treated with remdesivir, dexamethasone, vitamin C and zinc. He improved clinically and is being discharged home in a stable condition. Many thanks for allowing me to participate in your patient's care. Please feel free to contact me with any questions or concerns. Discharge destination: Home Total amount of time spent coordinating this discharge: 31 minutes below Resuscitation Status: 06/17/20 13:00 Resuscitation Status Routine Co-Sign Provider: Resuscitation Status: FULL: Full Resuscitation - Labs Lab Results: 06/21/20 04:46 06/21/20 04:47 Abnormal Lab Results - Last 48 hrs 06/20/20 05:17: Carbon Dioxide 19 L 06/20/20 05:17: RBC 4.09 L, Hgb 12.5 L, Hct 36.3 L, Plt Count 566 H, MPV 7.3 L, Monocytes # 0.7 H 06/20/20 05:17: Lactate Dehydrogenase 284 H 06/20/20 05:17: C-Reactive Protein 1.09 H 06/20/20 05:17: Ferritin 473.81 H 06/21/20 04:46: RBC 4.13 L, Hgb 12.4 L, Hct 36.6 L, Plt Count 558 H, Monocytes # 0.8 H 06/21/20 04:47: Carbon Dioxide 21 L, ALT 63 H - Physical Exam Vitals: Vital Signs (12 hours) Temp Pulse Resp BP BP Pulse Ox 06/21/20 11:30 98.3 F 70 18 139/77 95 06/21/20 08:50 97.7 F 70 20 159/63 H 97 06/21/20 03:09 98.3 F 63 18 112/58 L 96 Weight Admit Weight 212 lb 4.8 oz Weight 212 lb 4.8 oz Physical Exam: The patient was seen and examined on the day of discharge. Patient denies chest pain or shortness of breath. Vital signs are stable. S1 and S2 are heard. Lungs are clear to auscultation bilaterally. Plan - Discharge Medications Prescriptions: Dexamethasone 6 mg PO DAILY #5 tablet Ascorbic Acid [Vitamin C] 1,000 mg PO DAILY #5 tablet Zinc Sulfate [Zinc-220] 220 mg PO DAILY #5 capsule Home Medications: Medication Instructions Recorded Confirmed Type metFORMIN HCl [Metformin HCl] 500 mg PO QAM 01/04/19 06/17/20 History Olmesartan/Amlodipin/Hcthiazid 1 tablet PO QAM 05/15/19 06/17/20 History [Asoiqxa-Atlgwd-Zktw 40-10-25Mg] Aspirin 81 mg PO DAILY 06/17/20 06/17/20 History Ascorbic Acid [Vitamin C] 1,000 mg PO DAILY #5 tablet 06/21/20 Rx Dexamethasone 6 mg PO DAILY #5 tablet 06/21/20 Rx Zinc Sulfate [Zinc-220] 220 mg PO DAILY #5 capsule 06/21/20 Rx Allergies: eszopiclone [From Lunesta] Adverse Reaction (Verified 06/17/20 11:57) trazodone Adverse Reaction (Verified 06/17/20 11:57) zolpidem [From Ambien] Adverse Reaction (Verified 06/17/20 11:57) - Follow up Plan Referrals: Michael Devine MD [Primary Care Provider] - 3 Days Disposition: HOME Quality - Care Measures CORE MEASURES:: N/A
--- NOTE | 2020-06-21 14:22 | PRG ---
DATE OF SERVICE: 06/21/2020 SUBJECTIVE: Feeling well, sitting in the sofa by the bed. No cough. No dyspnea. No abdominal pain or diarrhea. No neurological symptoms. OBJECTIVE: VITAL SIGNS: Afebrile, saturating consistently above 95% on room air. LUNGS: With very faint crackles on the right side for the most part. Breath sounds are clear. HEART: S1, S2, regular rate. ABDOMEN: Soft, not distended. NEUROLOGIC: Nonfocal. LABORATORY DATA: White cell count 9.2, hemoglobin 12.4 platelets 558. D-dimer 0.4. CRP was down to 1.09. Today is the 16th day of illness. He is doing remdesivir and Decadron. ASSESSMENT AND DISCUSSION: Diabetes, hypertension, mild to moderate SARS-CoV2 pneumonia with improvement. Ready to be discharged. He does not look like he is going to require O2 supplementation at home. Job ID: [id number]
[2020-06-21] MEDS: REMDESIVIR (EUA) 100 MG in Sodium Chloride 0.9% 250 ML 230 ML IV SCH (15:33)
[2020-06-21 15:55] VITALS: BP 139/65; TEMP 98.5
== END 2020-06-21 17:45 | disposition home or self-care (01) | DRG 177 ==
LOC: 2SW 06-17 11:47 → OBSVTOIN 06-17 13:00
PROVIDERS: ADMIT Internal Medicine; ATTEND Internal Medicine
PROC: 8E0ZXY6 Isolation (ICD-10-PCS; principal; 2020-06-17)
PROC: XW043E5 Introduction of Remdesivir Anti-infective into Central Vein, Percutaneous Approach, New Technology Group 5 (ICD-10-PCS; 2020-06-17)
DX: U07.1 COVID-19 (principal); J96.01 Acute respiratory failure with hypoxia; J12.89 Other viral pneumonia; I21.A1 Myocardial infarction type 2; E87.1 Hypo-osmolality and hyponatremia; I10 Essential (primary) hypertension; E78.5 Hyperlipidemia, unspecified; E66.9 Obesity, unspecified; E11.9 Type 2 diabetes mellitus without complications; Z79.84 Long term (current) use of oral hypoglycemic drugs; Z88.8 Allergy status to other drugs, medicaments and biological substances; Z79.899 Other long term (current) drug therapy; Z68.33 Body mass index [BMI] 33.0-33.9, adult
CPT/HCPCS: 36415; 36416; 71045; 80048; 80076; 82728; 83615; 84484; 85025; 85379; 86140; 93005; 93010; J0456; J0696; J1650; J3490; J7050; J8540